=== PATIENT | male | born 1955 | race Caucasian/White ===

== ENCOUNTER 2020-12-02 15:29 | Outpatient (CLI) | payer MEDICARE, OTHER | END 2020-12-02 15:30 | disposition short-term general hospital (02) | LOC: EMS 15:29 | DX: M25.571 Pain in right ankle and joints of right foot (principal); W11.XXXA Fall on and from ladder, initial encounter; Y92.009 Unspecified place in unspecified non-institutional (private) residence as the place of occurrence of the external cause | CPT/HCPCS: A0425; A0427 ==